=== PATIENT | male | born 1990 | race Caucasian/White ===

== ENCOUNTER 2022-01-30 09:05 | Emergency (ER) | payer OTHER ==
[2022-01-30 09:13] VITALS: BP 142/91
--- NOTE | 2022-01-30 10:01 | XRAY Report ---
PROCEDURE: Shoulder 3 View LT INDICATIONS: pain/injury TECHNIQUE: 3 views of the shoulder were acquired. COMPARISON: None. FINDINGS: Bones: No fractures or dislocations. No suspicious bony lesions. Visualized ribs appear intact. Soft tissues: No suspicious soft tissue calcifications. IMPRESSION: No acute shoulder fracture or dislocation. Reviewed by: Lit Bahena MD on 01/30/2022 10:00 AM PDT Approved by: Lit Bahena MD on 01/30/2022 10:00 AM PDT Station ID: [id number]
--- NOTE | 2022-01-30 10:09 | ED Physician Documentation ---
PD HPI UPPER EXT INJURY - Stated complaint Stated Complaint: LT SHOULDER PX - Chief complaint Chief Complaint: Ext Problem - History obtained from History obtained from: Patient - Additonal information Additional information: The patient comes to the emergency department chief complaint of left shoulder pain after injury. He has been working out at the gym and started to notice that it seemed like his left shoulder was bothering him. He was occasionally having some sharp shooting pains coming from his shoulder and neck. Down into his arm, but seem like it is doing better today, so he went to the gym to workout. He was doing dumbbell bench presses and as soon as he began to lift the dumbbells, he felt a very sharp shooting pain in his shoulder and arm and had to put the dumbbells back immediately. He states that after that, he had some numbness and weakness and really could not use the hand he did not feel like. He states this lasted for about 30 minutes and only finally started to r esolve after he got here. He states that he has been having intermittent shooting pains since initial onset a few days ago and states that they just come on randomly. In between, he is full range of motion at the shoulder joint and has no numbness or weakness in his hand or arm. He feels as though the source of the problem is coming mostly from his shoulder, not his neck. He has no prior history of shoulder issues. He works out regularly and has not had any distinct injuries otherwise. He states he had his try to massage his back and shoulders last night to relax him but it did not seem to help so much. The patient states that prior to an episode coming on, he can feel a tightening in his posterior shoulder that feels potentially muscular that he gets to get the shooting pains down his arm. No other complaints at this time. Review of Systems Ten Systems: 10 systems reviewed and negative Constitutional: reports: Reviewed and negative Eyes: reports: Reviewed and negative Ears: reports: Reviewed and negative Nose: reports: Reviewed and negative Throat: reports: Reviewed and negative Cardiac: reports: Reviewed and negative Respiratory: reports: Reviewed and negative GI: reports: Reviewed and negative : reports: Reviewed and negative Skin: reports: Reviewed and negative Musculoskeletal: reports: Extremity pain, Joint pain Neurologic: reports: Reviewed and negative Psychiatric: reports: Reviewed and negative Endocrine: reports: Reviewed and negative Immunocompromised: reports: Reviewed and negative PD PAST MEDICAL HISTORY - Past Medical History Past Medical History: No Cardiovascular: None Respiratory: None Neuro: None Endocrine/Autoimmune: None GI: None : None HEENT: None Psych: None Musculoskeletal: None Derm: None - Past Surgical History Past Surgical History: No - Present Medications Home Medications: Ambulatory Orders Medication Instructions Recorded Confirmed Cyclobenzaprine [Flexeril] 10 mg PO TID PRN #20 tablet 01/30/22 Fluticasone [Flonase] 2 sprays NOMI DAILY 01/30/22 01/30/22 HYDROcod/ACETAM 5/325 [[place] 5/325] 1 - 2 tablet PO Q6H PRN #14 tablet 01/30/22 Loratadine [Claritin] 10 mg PO DAILY 01/30/22 01/30/22 predniSONE [Deltasone] 60 mg PO DAILY 5 Days #15 tablet 01/30/22 - Allergies Allergies/Adverse Reactions: Allergies Allergy/AdvReac Type Severity Reaction Status Date / Time No Known Drug Allergies Allergy Verified 01/30/22 09:08 - Social History Does the pt smoke?: No Smoking Status: Never smoker Does the pt drink ETOH?: Yes Does the pt have substance abuse?: No - Immunizations Immunizations are current?: Yes PD ED PE NORMAL - Vitals Vital signs reviewed: Yes - General General: Alert and oriented X 3, No acute distress, Well developed/nourished - HEENT HEENT: Atraumatic, PERRL, EOMI, Moist mucous membranes - Neck Neck: Supple, no meningeal sign, No bony TTP - Cardiac Cardiac: Strong equal pulses - Respiratory Respiratory: No respiratory distress - Derm Derm: Normal color, Warm and dry, No rash - Extremities Extremities: No deformity, Normal ROM s pain, No edema, Other (Full range of motion of left upper extremity without pain or limitation in all directions. No point tenderness. No popping or clicking with range of motion.) - Neuro Neuro: Alert and oriented X 3, conductor/brakeman 2-12 intact, No motor deficit, No sensory deficit, Normal speech, Other (5 out of 5 strength left upper extremity.) - Psych Psych: Normal mood, Normal affect Results - Vitals Vitals: Vital Signs - 24 hr 01/30/22 09:09 Temperature 36.5 C Heart Rate 85 Respiratory 16 Rate Blood Pressure 142/91 H O2 Saturation 99 Oxygen O2 Source Room air - Rads (name of study) Left shoulder x-ray Radiology: Final report received, EMP read indepedently, See rad report (Negative) PD MEDICAL DECISION MAKING - ED course Complexity details: reviewed results, re-evaluated patient, considered differential, d/w patient ED course: I discussed with the patient that at this point in time, his symptoms Sellick a soft tissue injury. He has an appointment coming up in a couple of days with his primary care physician and may discuss MRI at that time. His shoulder x-ray series here is negative. We have discussed home management of the symptoms, as well as usual indications for return. Departure - Departure Disposition: Home, Self Care Clinical Impression: Sprain of shoulder, left Qualifiers: Encounter type: initial encounter Shoulder sprain type: unspecified sprain Qualified Code(s): S43.402A - Unspecified sprain of left shoulder joint, initial encounter Condition: Stable Instructions: ED Sprain Shoulder Prescriptions: predniSONE [Deltasone] 60 mg PO DAILY 5 Days #15 tablet Cyclobenzaprine [Flexeril] 10 mg PO TID PRN #20 tablet PRN Reason: Spasms HYDROcod/ACETAM 5/325 [[place] 5/325] 1 - 2 tablet PO Q6H PRN #14 tablet PRN Reason: Pain Comments: Your x-ray series looks good. Your symptoms indicate a soft tissue injury involving the structures about the shoulder joint. This could be ligamentous, tendinous, muscular, or cartilaginous. Most of these sorts of injuries will heal on their own, given time and rest, but occasionally, and injury can become chronic. You may talk to your primary doctor on Friday about getting MRI done at some point in the near future if symptoms do not resolve on their own. You may continue to use ibuprofen and Tylenol as needed. Ice heat and massage, along with stretching, or also potentially helpful. Prescriptions have been sent to [facility] for a stronger pain medication, a muscle relaxer, and a steroid. You may take these to help with symptom control, as well. Please avoid any heavy use of the shoulder, whether working out or heavy lifting, until the shoulder is feeling completely better.
== END 2022-01-30 10:29 | disposition home or self-care (01) ==
LOC: ED 09:05
DX: S43.402A Unspecified sprain of left shoulder joint, initial encounter (principal); X58.XXXA Exposure to other specified factors, initial encounter; Y93.B3 Activity, free weights
CPT/HCPCS: 99282; 99283